=== PATIENT | male | born 1965 | race Caucasian/White ===

== ENCOUNTER 2018-04-17 15:25 | Emergency (ER) | payer OTHER ==
[~2018-04-17] VITALS: Ht 175.3 cm; Wt 90.7 kg
[2018-04-17] MEDS ORDERED: AMOXICILLIN 50500 MG PO (15:41)
[2018-04-17] MEDS ORDERED: PREDNISONE50 MG PO (15:42)
[2018-04-17] MEDS ORDERED: NABUMETONE 750750 M1 PO (16:26)
[2018-04-17 16:43] VITALS: BP 113/70
== END 2018-04-17 16:44 | disposition home or self-care (01) ==
LOC: M.ERS 15:25
DX: S61.212A Laceration without foreign body of right middle finger without damage to nail, initial encounter (principal); S09.8XXA Other specified injuries of head, initial encounter; F17.210 Nicotine dependence, cigarettes, uncomplicated; W22.8XXA Striking against or struck by other objects, initial encounter; Y93.89 Activity, other specified; Y92.89 Other specified places as the place of occurrence of the external cause; Y99.8 Other external cause status